=== PATIENT | male | born 1965 | race Caucasian/White ===

== ENCOUNTER 2021-05-04 17:40 | Emergency (ER) | payer MEDICAID ==
[~2021-05-04] VITALS: Ht 188 cm; Wt 79.5 kg
--- NOTE | 2021-05-04 18:04 | NUR ---
BIB [facility], PT FOUND OUTSIDE WEBSTER INTOXICATED, UNABLE TO WALK. NO MEDICAL COMPLAINTS
--- NOTE | 2021-05-04 18:59 | NUR ---
RECEIVED REPORT FROM SILVER ZAMORA. TRANSFER OF CARE. PT 02 SAT WHILE SLEEPING WAS 88% ON RA. PUT 2L NC ON PT.
--- NOTE | 2021-05-04 20:55 | NUR ---
PT AWAKE, SLURRING HIS WORDS, DEMANDING TO CHANGE THE TV CHANNEL. PT TOOK OFF ALL MONITORS. CURRENTLY REATTACHED. VSS. SMELLS LIKE ETOH. WCTM
[2021-05-04 21:47] VITALS: BP 103/71
--- NOTE | 2021-05-04 21:47 | NUR ---
Patient/Caregiver given discharge instructions and they have confirmed that they understand the instructions. Patient ambulatory with steady gait. NAD, all questions answered appropriately, denies additional needs at this time. No personal belongings left in room after discharge.
--- NOTE | 2021-05-04 21:57 | NUR ---
PT GIVEN WATER AND CRACKERS PRIOR TO DC
== END 2021-05-04 21:48 | disposition home or self-care (01) ==
LOC: ED 21:45
DX: F10.120 Alcohol abuse with intoxication, uncomplicated (principal); G31.2 Degeneration of nervous system due to alcohol; Y90.0 Blood alcohol level of less than 20 mg/100 ml
CPT/HCPCS: 99283

== ENCOUNTER 2021-06-16 15:27 | Inpatient (IN) | payer MEDICAID ==
[~2021-06-16] VITALS: Ht 180.3 cm; Wt 78.1 kg
--- NOTE | 2021-06-16 15:39 | NUR ---
PT BIB BY EMS FOR +ETOH, FOUND AT BUS STOP UNABLE TO AMBULATE. ALSO STATES HE WANTS A COVID TEST- [facility].
[2021-06-16 16:50] LABS: BASOPHILS % (AUTO) 1 % (0-1); EOSINOPHILS % (AUTO) 0 % (1-7); LYMPHOCYTES % (AUTO) 9 % (22-44); MEAN CORPUSCULAR HEMOGLOBIN 34.1 pg (27.5-34.5); MEAN CORPUSCULAR HGB CONC 35.5 g/dL (33.2-36.2); MONOCYTES % (AUTO) 16 % (2-9); NEUTROPHILS % (AUTO) 75 % (42-75); PLATELET COUNT 108 x10^3/uL (130-400); RED BLOOD COUNT 3.92 x10^6/uL (4.38-5.82); RED CELL DISTRIBUTION WIDTH 14.1 % (9.4-14.8)
[2021-06-16 16:59] LABS: ALBUMIN 3.1 g/dL (3.4-5.0); ANION GAP 12 mmol/L (5-15); CALCIUM 7.5 mg/dL (8.5-10.1); CHLORIDE 99 mmol/L (98-107)
[2021-06-16 17:03] LABS: CREATININE 0.48 mg/dL (0.7-1.3)
[2021-06-16] MEDS ORDERED: NS + 40MEQ KCL 1,000 ML IV ONE (17:35)
--- NOTE | 2021-06-16 17:44 | NUR ---
[facility] AT BEDSIDE TO DISCUSS POC
[2021-06-16] MEDS ORDERED: POTASSIUM CHLORIDE 20 MEQ TAB.ER.PRT ONE (17:52)
[2021-06-16] MEDS ORDERED: POTASSIUM CHLORIDE 20 MEQ TAB.ER.PRT PO ONE (18:00)
--- NOTE | 2021-06-16 18:14 | NUR ---
[facility] AT BEDSIDE FOR EVALUATION.
[2021-06-16] MEDS ORDERED: LORazepam 1MG TABLET PO PRN (18:30)
[2021-06-16] MEDS ORDERED: LORazepam 2 MG/ML, 1ML IV PRN ×2 (18:30)
[2021-06-16] MEDS ORDERED: LORazepam 0.5MG TABLET PO PRN (18:30)
--- NOTE | 2021-06-16 19:20 | NUR ---
PATIENT RESTING IN STRETCHER WITH EYES CLOSED. NAD. ON TRUCK DRIVER HEAVY. VSS. IV INFUSION RUNNING. CALL MENDIOLA IN REACH. WILL CONTINUE TO MONITOR.
[2021-06-16 20:39] LABS: ANION GAP 9 mmol/L (5-15); CALCIUM 7.2 mg/dL (8.5-10.1); CHLORIDE 100 mmol/L (98-107); CREATININE 0.54 mg/dL (0.7-1.3)
--- NOTE | 2021-06-16 21:02 | NUR ---
REQUESTED INPATIENT IV DRIP FROM PHARM AT THIS TIME.
[2021-06-16] MEDS ORDERED: LABETALOL 5MG/ML, 20ML IVPush PRN (21:08)
[2021-06-16] MEDS ORDERED: ACETAMINOPHEN 325 MG TABLET PO PRN (21:08)
[2021-06-16] MEDS ORDERED: ONDANSETRON 2MG/ML, 2ML IVPush PRN (21:09)
[2021-06-16] MEDS ORDERED: OXYcodone IR 5MG TABLET PO PRN (21:09)
[2021-06-16] MEDS ORDERED: HYDROmorphone 2 MG/ML, 1ML IVPush PRN (21:09)
[2021-06-16] MEDS ORDERED: POLYETHYLENE GLYCOL 17 GM PACKET PO PRN (21:09)
[2021-06-16] MEDS ORDERED: FAMOTIDINE 20 MG/2 ML ONE (21:35)
[2021-06-16] MEDS ORDERED: ENOXAPARIN 40 MG/0.4 ML ONE (21:35)
[2021-06-16] MEDS: ENOXAPARIN 40 MG/0.4 ML SQ SCH (21:38)
[2021-06-16] MEDS: FAMOTIDINE 20 MG/2 ML IVPush SCH (21:38)
[2021-06-16] MEDS: POTASSIUM CHLORIDE 20 MEQ, MAGNESIUM SULFATE 1 GM, FOLIC ACID 1 MG, THIAMINE 200 MG, MV... IV SCH (21:40)
--- NOTE | 2021-06-16 21:48 | NUR ---
PATIENT PROVIDED WITH BLANKETS, WATER, SPRITE, AND ORANGE JUICE. DENIES ANY OTHER NEEDS AT THIS TIME. CALL MENDIOLA IN REACH. WILL CONTINUE TO MONITOR.
[2021-06-17 00:53] LABS: ANION GAP 6 mmol/L (5-15); CALCIUM 7.1 mg/dL (8.5-10.1); CHLORIDE 102 mmol/L (98-107); CREATININE 0.44 mg/dL (0.7-1.3)
--- NOTE | 2021-06-17 01:06 | NUR ---
report from brandon mariee
--- NOTE | 2021-06-17 01:07 | NUR ---
REPORT GIVEN TO SERA NAYAK.
[2021-06-17 06:29] LABS: MEAN CORPUSCULAR HEMOGLOBIN 33.9 pg (27.5-34.5); MEAN CORPUSCULAR HGB CONC 35.3 g/dL (33.2-36.2); MEAN PLATELET VOLUME 6.8 fL (7.4-10.4); PLATELET COUNT 89 x10^3/uL (130-400); RED BLOOD COUNT 3.52 x10^6/uL (4.38-5.82); RED CELL DISTRIBUTION WIDTH 14.6 % (9.4-14.8)
[2021-06-17 06:35] LABS: ANION GAP 6 mmol/L (5-15); CALCIUM 7.2 mg/dL (8.5-10.1); CHLORIDE 98 mmol/L (98-107); CREATININE 0.38 mg/dL (0.7-1.3)
[2021-06-17 06:52] LABS: BAND#(MANUAL) 0.07 x10^3/uL; BANDS%(MANUAL) 2 % (0-7); EOS#(MANUAL) 0.04 x10^3/uL (0.0-0.4); EOS% (MANUAL) 1 % (1-7); LYMPH#(MANUAL) 0.48 x10^3/uL (1-3.4); LYMPHS% (MANUAL) 13 % (22-44); MONOS#(MANUAL) 0.56 x10^3/uL (0.3-2.7); MONOS% (MANUAL) 15 % (2-9); SEG#(MANUAL) 2.55 x10^3/uL (1.8-6.8); SEGS% (MANUAL) 69 % (42-75)
[2021-06-17 06:53] LABS: <PLATELET ESTIMATE> DECREASED; <PLT MORPHOLOGY> NORMAL PLT MORPH; <RBC MORPHOLOGY> NORMAL; PMNS WITH VACUOLES 1+
--- NOTE | 2021-06-17 07:41 | NUR ---
ASSUMING CARE OF PT AFTER BEDSIDE REPORT. PT ASLEEP WITH EVEN AND UNLABORED RESPIRATIONS. VSS. MACKEY.
[2021-06-17] MEDS ORDERED: LORazepam 1MG TABLET ONE (08:03)
[2021-06-17] MEDS ORDERED: ONDANSETRON 2MG/ML, 2ML ONE (08:04)
[2021-06-17 08:38] LABS: ANION GAP 8 mmol/L (5-15); CALCIUM 7.3 mg/dL (8.5-10.1); CHLORIDE 97 mmol/L (98-107)
[2021-06-17 08:41] LABS: CREATININE 0.45 mg/dL (0.7-1.3)
[2021-06-17] MEDS: FAMOTIDINE 20 MG/2 ML IVPush SCH ×2 (09:00→21:02)
--- NOTE | 2021-06-17 09:21 | NUR ---
PT ASLEEP WITH EVEN AND UNLABORED RESPIRATIONS. JAVIER. KEY.
--- NOTE | 2021-06-17 09:28 | NUR ---
PT PROVIDED WITH BREAKFAST TRAY AND WATER.
[2021-06-17 10:47] LABS: ALBUMIN 2.7 g/dL (3.4-5.0)
[2021-06-17 10:52] LABS: BILIRUBIN, DIRECT 0.2 mg/dL (0.1-0.2); BILIRUBIN,INDIRECT 0.3 mg/dL (0.0-2.0); BILIRUBIN,TOTAL 0.5 mg/dL (0.2-1.0); TOTAL PROTEIN 5.9 g/dL (6.4-8.2)
--- NOTE | 2021-06-17 11:37 | NUR ---
PT RESTING IN BED WATCHING TV. VSGarcia. KEY
--- NOTE | 2021-06-17 12:00 | NUR ---
pt resting in bed. vss. godwin. lunch tray provided.
--- NOTE | 2021-06-17 16:05 | NUR ---
PT RESTING IN BED WATCHING TV. VSS. MACKEY.
[2021-06-17] MEDS ORDERED: MAGNESIUM SULFATE PMX 2GM/50ML 50 ML ONE (17:28)
[2021-06-17] MEDS ORDERED: MAGNESIUM SULFATE PMX 2GM/50ML 50 ML IV ONE (17:30)
--- NOTE | 2021-06-17 18:31 | NUR ---
PT MOVED TO 29 WITH ALL BELONGINGS.. VSS. NADN.
--- NOTE | 2021-06-17 18:55 | NUR ---
REPORT TO [facility].
[2021-06-17] MEDS ORDERED: ENOXAPARIN 40 MG/0.4 ML ONE (20:30)
[2021-06-17] MEDS ORDERED: MELATONIN 5 MG TABLET ONE (20:30)
[2021-06-17] MEDS ORDERED: FAMOTIDINE 20 MG/2 ML ONE (20:31)
[2021-06-17] MEDS: POTASSIUM CHLORIDE 20 MEQ, MAGNESIUM SULFATE 1 GM, FOLIC ACID 1 MG, THIAMINE 200 MG, MV... IV SCH (21:02)
[2021-06-17] MEDS: ENOXAPARIN 40 MG/0.4 ML SQ SCH (21:03)
[2021-06-17] MEDS: POTASSIUM ACID PHOSPHATE 500 MG TABLET.SOL PO SCH (21:03)
[2021-06-17] MEDS: MELATONIN 5 MG TABLET PO PRN (21:03)
[2021-06-17 22:09] VITALS: BP 119/80
[2021-06-18] MEDS: MELATONIN 5 MG TABLET PO PRN (01:58)
[2021-06-18 02:02] VITALS: BP 130/76
[2021-06-18] MEDS: POTASSIUM ACID PHOSPHATE 500 MG TABLET.SOL PO SCH ×2 (02:04→10:32)
[2021-06-18 07:19] LABS: MEAN CORPUSCULAR HGB CONC 34.5 g/dL (33.2-36.2); PLATELET COUNT 109 x10^3/uL (130-400); RED BLOOD COUNT 3.89 x10^6/uL (4.38-5.82); RED CELL DISTRIBUTION WIDTH 14.3 % (9.4-14.8)
[2021-06-18 07:27] LABS: ALBUMIN 2.7 g/dL (3.4-5.0); ANION GAP 8 mmol/L (5-15); CALCIUM 7.4 mg/dL (8.5-10.1); CHLORIDE 99 mmol/L (98-107)
[2021-06-18 07:31] LABS: ALANINE AMINOTRANSFERASE 56 U/L (12-78); ALKALINE PHOSPHATASE 73 U/L (45-117); BILIRUBIN,TOTAL 0.5 mg/dL (0.2-1.0); CREATININE 0.48 mg/dL (0.7-1.3); TOTAL PROTEIN 6.2 g/dL (6.4-8.2)
[2021-06-18 07:46] LABS: SEG#(MANUAL) 0.87 x10^3/uL (1.8-6.8); SEGS% (MANUAL) 30 % (42-75)
[2021-06-18 07:47] LABS: BAND#(MANUAL) 0.03 x10^3/uL; BANDS%(MANUAL) 1 % (0-7); LYMPH#(MANUAL) 1.22 x10^3/uL (1-3.4); LYMPHS% (MANUAL) 42 % (22-44); MONOS#(MANUAL) 0.73 x10^3/uL (0.3-2.7); MONOS% (MANUAL) 25 % (2-9); REACTIVE LYMPHS # (MANUAL) 0.06 x10^3/uL (0-0); REACTIVE LYMPHS % (MANUAL) 2 % (0-0)
[2021-06-18 07:48] LABS: <PLATELET ESTIMATE> DECREASED; <PLT MORPHOLOGY> NORMAL PLT MORPH; <RBC MORPHOLOGY> NORMAL
[2021-06-18 08:27] VITALS: BP 136/72
[2021-06-18] MEDS ORDERED: MAGNESIUM OXIDE 400 MG TABLET PO SCH (09:00)
[2021-06-18] MEDS ORDERED: THIAMINE 100MG TABLET PO SCH (09:00)
[2021-06-18] MEDS ORDERED: MULTIVITAMIN 1 TABLET PO SCH (09:00)
[2021-06-18] MEDS ORDERED: POTASSIUM CHLORIDE 20 MEQ TAB.ER.PRT PO ONE (09:00)
[2021-06-18] MEDS ORDERED: FOLIC ACID 1 MG TABLET PO SCH (09:00)
[2021-06-18 12:55] VITALS: BP 142/76
[2021-06-18] MEDS ORDERED: THIA100T67 PO (14:31)
[2021-06-18] MEDS ORDERED: FOLI1TAB32 PO (14:31)
[2021-06-18] MEDS ORDERED: MULT-482 PO (14:31)
[2021-06-18] MEDS ORDERED: MAGN400T50 PO (14:31)
[2021-06-18] MEDS ORDERED: FAMOTIDINE 20 MG TABLET PO SCH (21:00)
== END 2021-06-18 16:12 | disposition home or self-care (01) | DRG 897 ==
LOC: ED 16:00 → EDIP 18:25 → 4EST 06-18 01:12 → 4WST 06-18 14:03
PROVIDERS: ADMIT Internal Medicine; ATTEND Internal Medicine
DX: F10.229 Alcohol dependence with intoxication, unspecified (principal); E87.1 Hypo-osmolality and hyponatremia; D64.9 Anemia, unspecified; F10.239 Alcohol dependence with withdrawal, unspecified; E87.6 Hypokalemia; D69.6 Thrombocytopenia, unspecified; E83.42 Hypomagnesemia; E83.39 Other disorders of phosphorus metabolism
CPT/HCPCS: 36415; 99285; J7121; 80048; 80053; 80076; 80320; 82040; 83735; 84100; 85025; 93005; J1650; J2405; J3411; J3475; J3480; G0480